=== PATIENT | female | born 1980 | race Caucasian/White ===

== ENCOUNTER → 2018-07-08 | Outpatient (CLI) | payer OTHER ==
--- NOTE | 2018-07-08 13:25 | RAD ---
DATE: 07/08/2018 EXAM: DIGITAL DIAGNOSTIC LT HISTORY: Patient has just undergone left breast biopsy. COMPARISON: 10/05/2017 bilateral diagnostic mammographic exam and 06/09/2018 left unilateral diagnostic mammogram exam This study was interpreted with the benefit of Computerized Aided Detection (CAD). Breast Density: SCATTERED The breast parenchyma shows scattered fibroglandular densities. Breast parenchyma level B. FINDINGS: Biopsy clip marker is present at the upper left central breast anteriorly at the site of the previously seen mass. The mass is not currently seen as core breast biopsy samples were obtained. Soft tissue gas corresponding to biopsy procedure performed immediately preceding this mammographic exam noted. No hematoma collection suggested. IMPRESSION: Successful placement of clip marker. BI-RADS CATEGORY: 4 SUSPICIOUS ABNORMALITY- BIOPSY SHOULD BE CONSIDERED RECOMMENDED FOLLOW-UP: BIO BIOPSY RECOMMENDED PQRS compliance statement: Patient information was entered into a reminder system with a target due date based upon biopsy results for the next mammogram. Mammography is a sensitive method for finding small breast cancers, but it does not detect them all and is not a substitute for careful clinical examination. A negative mammogram does not negate a clinically suspicious finding and should not result in delay in biopsying a clinically suspicious abnormality. "Our facility is accredited by the [employer] Mammography Program."
--- NOTE | 2018-07-08 14:16 | RAD ---
Ultrasound Guided Biopsy: History: Mass involving the left breast. Procedure: Relative benefits, risks and alternatives to the procedure were discussed and written informed consent was obtained. With sterile technique, 10 cc 1% lidocaine and ultrasound guidance, percutaneous biopsy was performed with a 12 needle via an introducer and 4 passes were obtained through the target. Open double technique was utilized for 3 of the 4 passes. The mass could not be delineated at the conclusion of obtaining samples. A marker was placed via the introducer, and post procedure CC and ML views were obtained. The procedure was well tolerated. Specimens were sent to Pathology. The patient left the department in good condition with written and verbal instructions. Impression: Successful left breast mass biopsied by ultrasound guidance. Pathology is pending.
--- NOTE | 2018-07-12 14:19 | PATHOLOGY ---
[facility] Accession Number: [id number] . 01 Material submitted: . LEFT BREAST NODULE . 01 Clinical history: . Left breast nodule . 02 Diagnosis: Breast tissue, left breast nodule, core biopsies: - Fibrocystic changes with the following components: Stromal fibrosis. Mild duct ectasia. Complex cystic change. Papillary apocrine metaplasia. . (JPM:mml; 07/12/2018) [facility]/07/12/2018 . 02 Comment: There is no atypia or evidence of malignancy. . (JPM:mml; 07/12/2018) . 02 Electronically signed: . Philippe Rogers MD, Pathologist NPI- [id number] . 01 Gross description: . Received in formalin labeled "[place], left breast," are multiple needle cores of yellow-lin fibrofatty tissue measuring 1.6 x 1.0 x 0.3 cm in aggregate dimensions. The tissue submitted in its entirety in cassette A1 through A3. The cold ischemic time is 2 minutes. The total formalin fixation time is 30 hours and 48 minutes. (TSD; 07/08/2018) TOB/TOB . 02 Pathologist provided ICD-10: N60.32, N60.42, N60.82 . 02 CPT . 098960 Specimen Comment: A courtesy copy of this report has been sent to Specimen Comment: [phone], , . Specimen Comment: Report sent to ,DR BABB / DR WRIGHT Performed at: [address], [place], [place] [id number] MD Familia Suárez MD Phone: [phone] Performed at: 02 [facility] [address] [place], [place] [id number] MD Philippe Rogers MD Phone: [phone]
== END | disposition home or self-care (01) ==
LOC: US 11:34
PROVIDERS: ATTEND Surgery
DX: N60.32 Fibrosclerosis of left breast (principal); N60.42 Mammary duct ectasia of left breast; N60.82 Other benign mammary dysplasias of left breast; N60.02 Solitary cyst of left breast; I10 Essential (primary) hypertension; F17.200 Nicotine dependence, unspecified, uncomplicated; Z90.710 Acquired absence of both cervix and uterus
CPT/HCPCS: 19083; 77065; 88305; C1713; 76942

== ENCOUNTER → 2020-12-17 | Outpatient (CLI) | payer OTHER ==
[~2020-12-17] MED LIST: IOHEXOL 240 MG/ML 50ML VIAL. PO ONE; IOHEXOL 300 MG/ML 100ML VIAL. IV ONE
--- NOTE | 2020-12-17 11:25 | KCIC ---
INDICATION: Reason: RLQ PAIN, HX OF ABDOMINAL ABSCESS / Spl. Instructions: ORAL AND IV OMNI 300 100ML / History: . COMPARISON: March 2015 TECHNIQUE: Axial CT images obtained through the abdomen and pelvis with contrast. One or more of the following individualized dose reduction techniques were utilized for this examinat ion: 1. Automated exposure control; 2. Adjustment of the mA and/or kV according to patient size; 3 . Use of iterative reconstruction technique. FINDINGS: Abdominal aorta is not aneurysmal. Calcific atherosclerosis. No intrahepatic bile duct dilation. Liver is low density which can be seen with fatty infiltration. No peripancreatic fluid collection. Spleen unremarkable. No hydronephrosis. Urinary bladder is largely decompressed. Colonic diverticulosis. Prominence the wall the sigmoid colon but not distended at this location. Small fat-containing umbilical hernia. No periappendiceal inflammatory changes. The appendix measures up to about 6 mm which is upper limits of normal. No dilated loops of bowel to suggest obstruction. Degenerative changes spine. There is some sclerosis at the T10 vertebral body which could be degenerative in nature. Mild wedging of T10 and T11 vertebral bodies. IMPRESSION: * No evidence of bowel obstruction or appendicitis. * No hydronephrosis * Prominence of wall of the sigmoid colon. Could be from lack of distention but would correlate with symptoms in the region to ensure that this is not secondary to mild diverticulitis or a colonic mass . Follow-up could be obtained to ensure that this does not increase given the prominence of wall. Electronically signed by: Jose Dupont MD (12/17/2020 11:22 AM) [id number]
== END ==
LOC: KCIC CT 08:47
PROVIDERS: ATTEND Family Medicine
DX: K42.9 Umbilical hernia without obstruction or gangrene (principal); K57.30 Diverticulosis of large intestine without perforation or abscess without bleeding; I70.0 Atherosclerosis of aorta; R10.31 Right lower quadrant pain; Z90.710 Acquired absence of both cervix and uterus; Z87.19 Personal history of other diseases of the digestive system
CPT/HCPCS: 74177; Q9966; Q9967